=== PATIENT | female | born 1995 | race Caucasian/White ===

== ENCOUNTER → 2017-04-04 | Outpatient (CLI) | payer OTHER ==
[~2017-04-04] MED LIST: BCPILLS PO
[2017-04-09 09:57] LABS: CHLAMYDIA TRACH RNA*** NOT DETECTED (NOT DETECTED); GC (NEIS GONORRHOEAE)RNA** NOT DETECTED (NOT DETECTED)
== END | disposition home or self-care (01) ==
LOC: C.LABSPEC 14:55
PROVIDERS: ATTEND Obstetrics & Gynecology
DX: Z11.3 Encounter for screening for infections with a predominantly sexual mode of transmission (principal); Y04.8XXA Assault by other bodily force, initial encounter

== ENCOUNTER → 2017-04-04 | Outpatient (CLI) | payer OTHER ==
[2017-04-09 08:34] LABS: HEPATITIS C RNA TMA QUAL Detected
== END | disposition home or self-care (01) ==
LOC: C.LAB1850 10:40
PROVIDERS: ATTEND Obstetrics & Gynecology
DX: Z11.3 Encounter for screening for infections with a predominantly sexual mode of transmission (principal); Y04.8XXA Assault by other bodily force, initial encounter

== ENCOUNTER → 2017-08-16 | Day surgery (SDC) | payer OTHER ==
[2017-08-13 08:15] VITALS: BMI 56.0
[~2017-08-16] VITALS: Ht 152.4 cm; Wt 130.4 kg
[~2017-08-16] MED LIST changes: +FENTANYL CITRATE INJ 50 MCG/1 ML 2 ML VIAL ONE; +KETAMINE HCL INJ 50 MG/ML 10 ML VIAL ONE; +LIDOCAINE HCL 2% 2 ML VIAL (20MG/ML) ONE; +MIDAZOLAM HCL 1 MG/ML 2ML VIAL ONE; +PROPOFOL IV EMULSION 10 MG/ML 20 ML VIAL IV ONE; +SODIUM CHLORIDE 0.9% 500ML 500 ML IV ONE
[2017-08-16 10:37] VITALS: Ht 152.4 cm; Wt 130.4 kg
[2017-08-16 10:49] VITALS: TEMP 36.7
--- NOTE | 2017-08-16 11:07 | Endo History and Physical ---
History & Physical Date of Service: Aug 16, 2017. Chief Complaint: HEP C CHECK FOR VARICIES Referring Physician: DR GABRIEL History of Present Illness cirrhosis r/o varices Past Surgical History Hx Cardiac Surgery: No Hx Internal Defibrillator: No Hx Pacemaker: No Hx Abdominal Surgery: No Hx of Implantable Prosthesis: No Hx Cancer Surgery: No Hx Thoracic Surgery: No Hx Orthopedic: No Hx Urinary Tract Surgery: No Family History None Social History Smoking Status: Never Smoker Hx Substance Use: No Hx Alcohol Use: No Allergies Coded Allergies: No Known Allergies (Unverified , NONE, 08/16/17) Current Medications Reported Home Medications Medications Dose Route/Sig Max Daily Dose Days Date Category Control Pills (Miscellaneous) Tab 1 Tab PO QAM 08/13/17 Reported Vital Signs Weight (Kilograms): 130.45 Height (Feet): 5 Height (Inches): 0 Date Time Temp Pulse Resp B/P (MAP) Pulse Ox O2 Delivery O2 Flow Rate FiO2 08/16/17 10:49 36.7 20 137/89 (105) 99 Room Air Physical Exam General Appearance: WD/WN, no apparent distress Assessment and Plan EGD today
--- NOTE | 2017-08-16 11:21 | Discharge Instructions ---
Endoscopy Patient Instructions Date / Procedure(s) Performed Aug 16, 2017. EGD Allergy Information Coded Allergies: No Known Allergies (Unverified , NONE, 08/16/17) Discharge Date / Findings Aug 16, 2017. mild portal hypertensive gastropathy; no esophageal varices Medication Instructions Restart Stopped Medication(s): OK to resume all home medications Provider Instructions Activity Restrictions - No exercising or heavy lifting for 24 hours. - Do not drink alcohol the day of the procedure. - Do not drive a car or operate machinery until the day after the procedure. - Do not make any important decisions or sign important papers in 24 hours after the procedure. Following Day: - Return to full activity which may include returning to work/school. Diet Start your diet with liquids and light foods (jello, soup, juice, toast). Then eat your usual diet if not nauseated. Treatment For Common After Affects For mild abdominal pain, bloating, or excessive gas: - Rest - Eat lightly - Lie on right side Follow-Up Information Follow-up with DR GABRIEL as scheduled Anesthesia Information What You Should Know You have had a procedure that required some medicine to reduce anxiety and discomfort. This treatment is called moderate sedation. After receiving the treatment, you may be sleepy, but you will be able to breathe on your own. The effects of the treatment may last for several hours. Follow these instructions along with Activity/Diet recommendations noted above: * Do NOT do anything where dizziness or clumsiness would be dangerous. * Rest quietly at home today, then you can be up and about tomorrow. * Have a responsible person stay with you the rest of today. * You may have had an I.V. today. If so, you may take the dressing off later today. Recommendations Call your doctor if: * Trouble breathing * Continuous vomiting for more than 24 hours * Temperature above 101 degrees * Severe abdominal pain or bloating * Pain not relieved by pain medicine ordered * There is increased drainage or redness from any incision * A large amount of rectal bleeding greater than 2-3 tablespoons. (If you had a polyp/s removed or have hemorrhoids, a small amount of blood - from the rectum is to be expected.) * You have any unanswered questions or concerns. IN THE EVENT OF A SERIOUS EMERGENCY, GO TO THE NEAREST EMERGENCY ROOM Your discharge instructions were prepared by provider Tammy Hicks. Patient Instructions Signature Page Tori Lesser Patient (or Guardian) Signature/Date: I have read and understand the instructions given to me by my caregivers. Caregiver/RN/Doctor Signature/Date: The above-named patient and/or guardian has received patient instructions on this date. + Original Patient Signature Page (only) stays with chart. Please make copy for patient.
--- NOTE | 2017-08-16 11:29 | GI REPORT ---
Procedure Date: 08/16/2017 11:00 AM Procedure: Upper GI endoscopy Indications: Cirrhosis rule out esophageal varices Medicines: Propofol per Anesthesia Complications: No immediate complications. Estimated blood loss: None. Estimated Blood Loss: Estimated blood loss: none. Procedure: Pre-Anesthesia Assessment: - Prior to the procedure, a History and Physical was performed, and patient medications, allergies and sensitivities were reviewed. The patient's tolerance of previous anesthesia was reviewed. - The risks and benefits of the procedure and the sedation options and risks were discussed with the patient. All questions were answered and informed consent was obtained. - Patient identification and proposed procedure were verified prior to the procedure by the physician and the nurse. The procedure was verified in the pre-procedure area in the procedure room. - Mental Status Examination: alert and oriented. Airway Examination: normal oropharyngeal airway and neck mobility. Respiratory Examination: clear to auscultation. CV Examination: normal. Abdominal Examination: bowel sounds present, abdomen soft and non-tender, no masses or organomegaly noted. - ASA Grade Assessment: III - A patient with severe systemic disease. After obtaining informed consent, the endoscope was passed under direct vision. Throughout the procedure, the patient's blood pressure, pulse, and oxygen saturations were monitored continuously. The scope was introduced through the mouth, and advanced to the third part of duodenum. The upper GI endoscopy was accomplished without difficulty. The patient tolerated the procedure well. Findings: The esophagus was normal. Mild portal hypertensive gastropathy was found in the entire examined stomach. The examined duodenum was normal. Impression: - Normal esophagus. No varices - Mild changes of portal hypertensive gastropathy. - Normal examined duodenum. - No specimens collected. Recommendation: - Return to referring physician as previously scheduled. - Discharge patient to home. Tammy Hicks D.O. Tammy Hicks DO 08/16/2017 11:29:38 AM This report has been signed electronically. Note Initiated On: 08/16/2017 11:00 AM I attest to the content of the Intraoperative Record and orders documented therein, exceptions below
[2017-08-16 11:55] VITALS: BP 126/83; PULSE 97; O2SAT 97
--- NOTE | 2017-08-16 12:23 | Anesthesiology Progress Note ---
Anesthesia Post Op Note Date & Time Aug 16, 2017 at 12:23 Vital Signs Pain Intensity: 0 Vital Signs Past 12 Hours Date Time Temp Pulse Resp B/P (MAP) Pulse Ox O2 Delivery O2 Flow Rate FiO2 08/16/17 11:55 97 20 126/83 (97) 97 Room Air 08/16/17 11:40 96 16 161/100 (120) 97 Room Air 08/16/17 11:25 94 12 148/106 (120) 95 Room Air 08/16/17 10:49 36.7 20 137/89 (105) 99 Room Air Notes Mental Status: alert / awake / arousable, participated in evaluation Pt Amnestic to Procedure: Yes Nausea / Vomiting: adequately controlled Pain: adequately controlled Airway Patency, RR, SpO2: stable & adequate BP & HR: stable & adequate Hydration State: stable & adequate Anesthetic Complications: no major complications apparent
== END | disposition home or self-care (01) ==
LOC: C.GI 10:24
PROVIDERS: ATTEND Internal Medicine
DX: K74.60 Unspecified cirrhosis of liver (principal); K76.6 Portal hypertension; K31.89 Other diseases of stomach and duodenum; B19.20 Unspecified viral hepatitis C without hepatic coma

== ENCOUNTER 2017-12-09 15:14 | Emergency (ER) | payer OTHER ==
[~2017-12-09] VITALS: Ht 152.4 cm; Wt 133.0 kg
[~2017-12-09 15:14] MED LIST changes: -FENTANYL CITRATE INJ 50 MCG/1 ML 2 ML VIAL ONE; -KETAMINE HCL INJ 50 MG/ML 10 ML VIAL ONE; -LIDOCAINE HCL 2% 2 ML VIAL (20MG/ML) ONE; -MIDAZOLAM HCL 1 MG/ML 2ML VIAL ONE; -PROPOFOL IV EMULSION 10 MG/ML 20 ML VIAL IV ONE; -SODIUM CHLORIDE 0.9% 500ML 500 ML IV ONE
[2017-12-09 15:46] VITALS: TEMP 36.9; Ht 152.4 cm; Wt 133.0 kg
[2017-12-09 18:02] LABS: BASO % 0.4 %; BASO ABS # 0.03 K/uL (0-0.2); EOS % 1.4 %; EOS ABS # 0.11 K/uL (0-0.5); HEMATOCRIT 46.1 % (37-47); HEMOGLOBIN 15.4 g/dL (12.0-16.0); IG# 0.03 K/uL (0.00-0.02); LYMPH % 42.7 %; LYMPH ABS # 3.38 K/uL (1.2-3.4); MEAN CELL VOLUME 88.8 fL (80-100); MEAN CORPUSCULAR HEMOGLOBIN 29.7 pg (25-34); MEAN CORPUSCULAR HGB CONC 33.4 g/dl (32-36); MEAN PLATELET VOLUME 9.3 fL (7.4-10.4); MONO % 7.1 %; MONO ABS # 0.56 K/uL (0.11-0.59); PLATELET COUNT 199 K/uL (130-400); RED CELL DISTRIBUTION WIDTH CV 13.3 % (11.5-14.5); RED CELL DISTRIBUTION WIDTH SD 43.8 fL (36.4-46.3); WHITE BLOOD COUNT 7.91 K/uL (4.8-10.8)
--- NOTE | 2017-12-09 18:07 | DIAGNOSTIC IMAGING REPORT ---
CHEST ONE VIEW PORTABLE CLINICAL HISTORY: cough COMPARISON STUDY: No previous studies for comparison. FINDINGS: The study is somewhat limited from a technical standpoint. The heart is mildly enlarged. There is no focal pulmonary consolidation. There is equivocal right lower lobe bronchial wall thickening. No pleural effusions are visualized.[ IMPRESSION: 1. Equivocal right lower lobe bronchial wall thickening 2. No evidence of focal pulmonary consolidation Electronically signed by: Alberto Kahn M.D. 12/09/2017 6:06 PM Dictated Date/Time: 12/09/2017 6:05 PM
[2017-12-09 18:18] LABS: CALCIUM 8.9 mg/dl (8.5-10.1); CREATININE 0.7 mg/dl (0.60-1.20); POTASSIUM 4.1 mmol/L (3.5-5.1)
[2017-12-09] MEDS ORDERED: LEDI1TAB (18:28)
[2017-12-09] MEDS ORDERED: LEVO-13 (18:28)
[2017-12-09] MEDS ORDERED: DOXYCYCLINE HYCLATE 100 MG CAP PO ONE (19:30)
[2017-12-09] MEDS ORDERED: DOXY100C PO (19:31)
[2017-12-09 20:19] VITALS: BP 111/86; PULSE 84; O2SAT 95
--- NOTE | 2017-12-09 22:18 | EMERGENCY ROOM VISIT NOTE ---
History Report prepared by Nae: Madelin Correa Under the Supervision of: Dr. Deion Alexandra D.O. First contact with patient: 17:34 Chief Complaint: INFECTION Stated Complaint: SEVERE INFECTION IN RT LEG, FALL History of Present Illness The patient is a 22 year old female who presents to the Emergency Room with complaints of persistent right leg infection starting 1 week ago. The patient fell and hit her leg around 1 week ago. Her mother noticed the scab yesterday and saw that it was red. She is concerned for infection. She has not been taking anything for her leg. She has been able to walk. She has had cold symptoms with cough and rhinorrhea for 1 week. She denies any fever, abdominal pain, nausea, vomiting, diarrhea, or urinary symptoms. Source of History: patient, parent Onset: 1 week ago Position: leg (right) Quality: other (infection) Timing: other (persistent) Associated Symptoms: + cough, No fevers, No nausea, No vomiting, No abdominal pain, No diarrhea, No urinary symptoms Review of Systems See HPI for pertinent positives & negatives. A total of 10 systems reviewed and were otherwise negative. Past Medical & Surgical Medical Problems: (1) Hepatitis C Family History No pertinent family history stated. Social History Smoking Status: Never Smoker Housing Status: lives with family Current/Historical Medications Scheduled Doxycycline Hyclate (Vibramycin), 100 MG PO BID Miscellaneous Medications Ledipasvir-Sofosbuvir (Harvoni 90-400 mg) Levonorgestrel-Ethinyl Estradi (Camrese) Allergies Coded Allergies: No Known Allergies (Unverified , NONE, 12/09/17) Physical Exam Vital Signs Date Time Temp Pulse Resp B/P (MAP) Pulse Ox O2 Delivery O2 Flow Rate FiO2 12/09/17 20:19 84 18 111/86 95 Room Air 12/09/17 19:13 75 20 110/89 97 Room Air 12/09/17 17:38 67 22 150/106 97 Room Air 12/09/17 15:46 36.9 81 18 172/107 97 Room Air Physical Exam GENERAL: Sitting up in bed, alert, well appearing, well nourished, no distress, non-toxic EYE EXAM: normal conjunctiva. EARS: TMs clear bilaterally OROPHARYNX: no exudate, no erythema, lips, buccal mucosa, and tongue normal and mucous membranes are moist NECK: supple, no nuchal rigidity, no adenopathy, non-tender LUNGS: Clear to auscultation. Normal chest wall mechanics HEART: no murmurs, S1 normal and S2 normal ABDOMEN: abdomen soft, non-tender, normo-active bowel sounds, no masses, no rebound or guarding. BACK: Back is symmetrical on inspection and there is no deformity, no midline tenderness, no CVA tenderness. SKIN: no rashes and no bruising UPPER EXTREMITIES: upper extremities are grossly normal. LOWER EXTREMITIES: 3cm of erythema surrounding 5cm x 6cm scab on right anterior mid diggs. No induration or purulent discharge. Full active and passive ROM of the right ankle, knee, and hip. No pitting edema. NEURO EXAM: Normal sensorium, cranial nerves II-XII grossly intact, normal speech, no gross weakness of arms, no gross weakness of legs. Medical Decision & Procedures ER Provider Diagnostic Interpretation: Xray results as stated below per my and the radiologist's interpretation: CHEST ONE VIEW PORTABLE CLINICAL HISTORY: cough COMPARISON STUDY: No previous studies for comparison. FINDINGS: The study is somewhat limited from a technical standpoint. The heart is mildly enlarged. There is no focal pulmonary consolidation. There is equivocal right lower lobe bronchial wall thickening. No pleural effusions are visualized.[ IMPRESSION: 1. Equivocal right lower lobe bronchial wall thickening 2. No evidence of focal pulmonary consolidation Electronically signed by: Alberto Kahn M.D. 12/09/2017 6:06 PM Dictated Date/Time: 12/09/2017 6:05 PM Laboratory Results 12/09/17 17:50 Red Blood Count 5.19, Mean Corpuscular Volume 88.8, Mean Corpuscular Hemoglobin 29.7, Mean Corpuscular Hemoglobin Concent 33.4, Mean Platelet Volume 9.3, Neutrophils (%) (Auto) 48.0, Lymphocytes (%) (Auto) 42.7, Monocytes (%) (Auto) 7.1, Eosinophils (%) (Auto) 1.4, Basophils (%) (Auto) 0.4, Neutrophils # (Auto) 3.80, Lymphocytes # (Auto) 3.38, Monocytes # (Auto) 0.56, Eosinophils # (Auto) 0.11, Basophils # (Auto) 0.03 12/09/17 17:50 Test 12/09/17 17:50 White Blood Count 7.91 K/uL (4.8-10.8) Red Blood Count 5.19 M/uL (4.2-5.4) Hemoglobin 15.4 g/dL (12.0-16.0) Hematocrit 46.1 % (37-47) Mean Corpuscular Volume 88.8 fL (80-100) Mean Corpuscular Hemoglobin 29.7 pg (25-34) Mean Corpuscular Hemoglobin Concent 33.4 g/dl (32-36) Platelet Count 199 K/uL (130-400) Mean Platelet Volume 9.3 fL (7.4-10.4) Neutrophils (%) (Auto) 48.0 % Lymphocytes (%) (Auto) 42.7 % Monocytes (%) (Auto) 7.1 % Eosinophils (%) (Auto) 1.4 % Basophils (%) (Auto) 0.4 % Neutrophils # (Auto) 3.80 K/uL (1.4-6.5) Lymphocytes # (Auto) 3.38 K/uL (1.2-3.4) Monocytes # (Auto) 0.56 K/uL (0.11-0.59) Eosinophils # (Auto) 0.11 K/uL (0-0.5) Basophils # (Auto) 0.03 K/uL (0-0.2) RDW Standard Deviation 43.8 fL (36.4-46.3) RDW Coefficient of Variation 13.3 % (11.5-14.5) Immature Granulocyte % (Auto) 0.4 % Immature Granulocyte # (Auto) 0.03 K/uL (0.00-0.02) Anion Gap 8.0 mmol/L (3-11) Est Creatinine Clear Calc Drug Dose 158.8 ml/min Estimated GFR () 141.5 Estimated GFR (Non- 122.1 BUN/Creatinine Ratio 19.5 (10-20) Calcium Level 8.9 mg/dl (8.5-10.1) Laboratory results per my review. Medications Administered Medications (Trade) Dose Ordered Sig/Gil Route Start Time Stop Time Status Last Admin Dose Admin Doxycycline Hyclate (Vibramycin Cap) 100 mg ONE ONCE PO 12/09/17 19:30 12/09/17 19:32 DC 12/09/17 20:19 100 MG ED Course ED COURSE: Vital signs were reviewed and showed hypertension. The patients medical record was reviewed The above diagnostic studies were performed and reviewed. ED treatments and interventions as stated above. 173: The patient was evaluated in room A12A. A complete history and physical examination was performed. 192: Upon reevaluation, the patient is resting comfortably. I discussed my findings with the patient and her mother and they understand and agree with the treatment plan. Based on the patients age, coexisting illnesses, exam and lab findings the decision to treat as an outpatient was made. The patient remained stable while under my care. The patient appeared well at the time of discharge. 1930: Doxycycline Hyclate 100 mg PO. Medical Decision Differential diagnosis: Etiologies such as cellulitis, abscess, MRSA infection, DVT, necrotizing fasciitis, dermatitis, drug eruption, as well as others were entertained.. Patient is a 22-year-old female who presents to ER for a cough and runny nose that has been present since last week associated with an abrasion to her right diggs. Mom just noticed the abrasion today. Patient notes that she fell. She does have surrounding erythema. No recorded fevers. No induration. Based on her presentation she has mild surrounding cellulitis. Chest x-ray and blood work was obtained the upper respiratory infection and was unremarkable. A she family were updated bedside. She was discharged on doxycycline and instructed to follow-up with PCP in 48 hours for repeat check of her wound. Discussed with parent concerning signs and symptoms to watch out for. Parent was instructed to follow up with their PCP and discussed with the parent their option to return to the ED at anytime for persistent or worsening symptoms. The appropriate anticipatory guidance and out-patient management, including indications for return to the emergency department, were explained at length to the parent and understood. Medication Reconcilliation Current Medication List: was personally reviewed by me Blood Pressure Screening Patient's blood pressure: Elevated blood pressure Blood pressure disposition: Elevated BP felt to be situational Impression Primary Impression: Cellulitis Scribe Attestation The scribe's documentation has been prepared under my direction and personally reviewed by me in its entirety. I confirm that the note above accurately reflects all work, treatment, procedures, and medical decision making performed by me. Departure Information Dispostion Home / Self-Care Prescriptions Doxycycline Hyclate (VIBRAMYCIN) 100 Mg Cap 100 MG PO BID for 10 Days, CAP Prov: Deion Alexandra, DO 12/09/17 Referrals Onofre Vance M.D. Forms HOME CARE DOCUMENTATION FORM, IMPORTANT VISIT INFORMATION, WORK / SCHOOL INSTRUCTIONS Patient Instructions Cellulitis - [facility], [facility] Additional Instructions Please follow up with your primary care doctor with in the next 48 hours. Any worsening of your symptoms, please return to the ED immediately. This includes any fevers greater than 100.4, worsening pain, chest pain, shortness breath, persistent nausea, vomiting, unable to eat or drink, or any other concerning signs or symptoms from your standpoint. Please take antibiotics as prescribed and follow up with your PCP in 48 hours to have a recheck of her wound. This should be improving at that time point. Any streaking of the redness up her leg, increased swelling, fevers greater than 100.4 patient return to the ER for further evaluation. Problem Qualifiers Primary Impression: Cellulitis Site of cellulitis: unspecified site Qualified Codes: L03.90 - Cellulitis, unspecified
== END 2017-12-09 20:21 | disposition home or self-care (01) ==
LOC: C.EDB 15:15 → C.EDA 20:21
DX: L03.115 Cellulitis of right lower limb (principal); B19.20 Unspecified viral hepatitis C without hepatic coma

== ENCOUNTER 2017-12-12 17:59 | Emergency (ER) | payer OTHER ==
[~2017-12-12] VITALS: Ht 152.4 cm; Wt 129.9 kg
[~2017-12-12 17:59] MED LIST changes: -BCPILLS PO; +DOXY100C PO; +LEDI1TAB; +LEVO-13
[2017-12-12 18:02] VITALS: TEMP 36.3; Ht 152.4 cm; Wt 129.9 kg
[2017-12-12] MEDS ORDERED: CEPHALEXIN 500MG HOME PACK 1 EA BTL PO STA (20:20)
[2017-12-12] MEDS ORDERED: SEPTRA DS HOME PACK 1 EA VIAL PO STA (20:20)
--- NOTE | 2017-12-12 20:30 | EMERGENCY ROOM VISIT NOTE ---
ED Visit Note First contact with patient: 20:05 CHIEF COMPLAINT: Infection of the right lower extremity HISTORY OF PRESENT ILLNESS: This 22-year-old female patient presents to the emergency department, ambulatory, with her mother, complaining of worsening redness and swelling of the right lower extremity. The area has become increasingly red and warm. The area is not painful. The patient did fall and hit her leg approximately 1.5 weeks ago. Her mother noticed the scab earlier this week. The patient denies fever, chills, nausea, or loss of appetite. Movement of the right lower extremity is not decreased because of the pain. The patient's tetanus shot is up to date. The patient was here 2 days ago, and was prescribed doxycycline for the cellulitis. She has been taking this medication as prescribed. REVIEW OF SYSTEMS: A 10 system review of systems was performed with positives and pertinent negatives listed in the history of present illness. All other systems were reviewed and are negative. ALLERGIES: None MEDICATIONS: Camrese PMH: Prader-Willi SOCIAL HISTORY: The patient lives locally with family. She denies drug, alcohol , tobacco use. PHYSICAL EXAM: Vital Signs: Reviewed Nurse's notes, Temperature 36.3C, vital signs stable. GENERAL: This is a 22-year-old obese white female, in no acute distress, is non toxic in appearance, well-developed, well-nourished. SKIN: The anterior right diggs is red, warm, and swollen, surrounding a large scabbed over lesion. The zone of erythema is approximately 14cm x 9cm. There is no tenderness to palpation. There is no lymphangitic streaking. There is no discharge. There is no fluctuance. There is no induration. HEART: Regular rate and rhythm without murmur, gallop, or rub. LUNGS: Clear to auscultation bilaterally without wheezes, rales, or rhonchi. NEURO: Alert and oriented to person, place, and time. Normal sensation to light and sharp touch. Capillary reflex less than 2 seconds. Peripheral pulses 2 + bilaterally. RADIOLOGY: RIGHT LOWER EXTREMITY ULTRASOUND FINDINGS: Targeted sonography overlying the right anterior lower leg was performed. No fluid collection was identified to suggest abscess. No mass or other sonographic abnormality was identified. IMPRESSION: No right lower extremity abscess by sonography. EMERGENCY DEPARTMENT COURSE: Previous medical records reviewed. I examined the patient. She was also examined by Dr. Alexandra, who agrees that the cellulitis does seem to have spread. Ultrasound was ordered and performed to rule out abscess. This was negative for obvious abscess. The cellulitis was outlined with skin marker to provide a guideline for monitoring of the infection. The patient will be switched from doxycycline to Keflex and Bactrim. She was given a home pack of both of these medications to take tonight and tomorrow. Prescriptions were sent to the pharmacy. Discharge instructions reviewed, and the patient was discharged home in good condition. I attest that I have personally reviewed the patient's current medication list. Blood Pressure Screening: Patient was found to have a slightly elevated blood pressure due to circumstances. I do not believe that the patient requires hypertension monitoring. DIFFERENTIAL DIAGNOSIS: Cellulitis, abscess, trauma, DVT, malignancy, and others DIAGNOSIS: Cellulitis of the right anterior diggs Problem List Medical Problems: (1) Hepatitis C Status: Chronic Current/Historical Medications Scheduled Cephalexin Monohydrate (Keflex), 500 MG PO QID Doxycycline Hyclate (Vibramycin), 100 MG PO BID Sulfa/Trimethoprim (Bactrim Ds 800MG/160MG), 1 TAB PO BID Miscellaneous Medications Ledipasvir-Sofosbuvir (Harvoni 90-400 mg) Levonorgestrel-Ethinyl Estradi (Camrese) Allergies Coded Allergies: No Known Allergies (Unverified , NONE, 12/09/17) Vital Signs Date Time Temp Pulse Resp B/P (MAP) Pulse Ox O2 Delivery O2 Flow Rate FiO2 12/12/17 21:41 72 18 140/82 97 12/12/17 20:50 71 18 143/84 97 Room Air 12/12/17 18:02 36.3 81 18 160/109 97 Room Air Departure Information Impression Primary Impression: Cellulitis Dispostion Home / Self-Care Condition GOOD Prescriptions Sulfa/Trimethoprim (Bactrim Ds 800MG/160MG) Tab 1 TAB PO BID for 10 Days, #20 TAB Prov: Shania Cain PA-C 12/12/17 Cephalexin Monohydrate (Keflex) 500 Mg Cap 500 MG PO QID for 10 Days, #40 CAP Prov: Shania Cain PA-C 12/12/17 Referrals No Doctor, Assigned (PCP) Patient Instructions ED Infec Skin Cellulitis, [facility] Additional Instructions You were seen in the emergency department today for worsening cellulitis of the right lower extremity. Ultrasound did not reveal any evidence of abscess. Discontinue doxycycline. Cephalexin(Keflex) 500mg: Take one pill four times daily for 10 days for your skin infection. All antibiotics can cause diarrhea. If this occurs and you feel worse or it does not resolve in 1-2 days follow up with your doctor or return to the Emergency Department as this could be signs of serious underlying problems. Any medication can cause an allergic reaction, stop the pills immediately and return to the ER for rash, hives, breathing difficulties, or swelling. Trimethoprim-Sulfamethoxazole(Bactrim DS): Take one pill twice daily for 10 days for your skin infection. All antibiotics can cause diarrhea. If this occurs and you feel worse or it does not resolve in 1-2 days follow up with your doctor or return to the Emergency Department as this could be signs of serious underlying problems. Any medication can cause an allergic reaction, stop the pills immediately and return to the ER for rash, hives, breathing difficulties, or swelling. Follow-up with the PCP in 2-3 days for re-evaluation of the wound. You may return to the ED for re-check if you prefer. Return to the ED for worsening redness, swelling, pus-like drainage, fever, chills, nausea, vomiting, or other systemic symptoms. Problem Qualifiers Primary Impression: Cellulitis Site of cellulitis: extremity Site of cellulitis of extremity: lower extremity Laterality: right Qualified Codes: L03.115 - Cellulitis of right lower limb
--- NOTE | 2017-12-12 20:56 | DIAGNOSTIC IMAGING REPORT ---
RIGHT LOWER EXTREMITY ULTRASOUND CLINICAL HISTORY: Right lower extremity cellulitis. Evaluate for abscess. COMPARISON STUDY: No previous studies for comparison. FINDINGS: Targeted sonography overlying the right anterior lower leg was performed. No fluid collection was identified to suggest abscess. No mass or other sonographic abnormality was identified. IMPRESSION: No right lower extremity abscess by sonography. Electronically signed by: Gurmeet Owen M.D. 12/12/2017 8:55 PM Dictated Date/Time: 12/12/2017 8:54 PM
[2017-12-12] MEDS ORDERED: CEPH500C PO (21:28)
[2017-12-12] MEDS ORDERED: SULF800T23 PO (21:28)
[2017-12-12 21:41] VITALS: BP 140/82; PULSE 72; O2SAT 97
== END 2017-12-12 21:35 | disposition home or self-care (01) ==
LOC: C.EDB 17:59 → C.EDC 21:35
DX: L03.115 Cellulitis of right lower limb (principal); Q87.1 Congenital malformation syndromes predominantly associated with short stature; B19.20 Unspecified viral hepatitis C without hepatic coma

== ENCOUNTER 2022-01-29 05:31 | Observation (INO) ==
--- NOTE | 2022-01-24 13:57 | Anesthesiology Consultation ---
Date of Service January 24, 2022 Assessment & Plan (1) Encounter for pre-operative examination: Chart Review Chart Review: Acceptable Risk for Surgery (pending preop Covid testing results and DOS labs/EKG ) and Patient NOT seen in Pre Admission Testing -Due to DM- will order CBC with diff, PRP and EKG for stat AM of surgery - Check BSG AM DOS - Check test AM DOS Per nursing assessment 01/24/2022, patient resides at [facility]. Patient's mother will be present on DOS. Patient has not had any recent travel. No known Covid infection in the past 90 days. Patient is fully vaccinated for Covid. No known Covid positive exposures or Covid related symptoms. Preop Covid testing scheduled 01/26/22= will await results ERCP (done under [facility]) 12/27/21= Done under [facility]. No anesthesia issues noted per record History Surgery Operation Date: 01/29/22 07:15 Proposed Procedures p Laparoscopic Cholecystectomy possible Open - Neftaly Rose MD Height/Weight Height: 5 ft Weight: 86.908 kg Allergies Allergy/AdvReac Type Severity Reaction Status Date / Time No Known Drug Allergies Allergy Verified 01/24/22 12:53 Medications Home Medications Medication Instructions Recorded Confirmed Last Taken multivitamin (Daily Multiple) 1 tab PO QAM 04/11/20 01/24/22 Unknown ibuprofen 200 mg capsule 200 mg PO Q6H PRN 04/15/20 01/24/22 Unknown glipizide 2.5 mg tablet, extended 2.5 mg PO QAM 09/28/21 01/24/22 Unknown release 24 hr nystatin 100,000 unit/gram topical 1 applic TOPICAL DAILY PRN 09/28/21 01/24/22 Unknown powder ([facility]) levonorgestrel 0.15 mg-ethinyl 1 tab PO QAM 01/24/22 01/24/22 Unknown estradiol 30 mcg tablets,3 mos pack(91) ([facility]) Past Medical History Medical History (Updated 01/24/22 @ 14:11 by Melanie Mendoza PA-C) Cirrhosis Curvature of spine Developmental language disorder DM type 2 (diabetes mellitus, type 2) History of hepatitis C Intellectual disability Lives in fpc Obesity MARIA DEL CARMEN (obstructive sleep apnea) Pt refuses CPAP per records Prader-Willi syndrome Past Family History Family History Grandmother (Maternal) Breast cancer Mother Cancer Diabetes Heart disease Hypertension Father Hypertension Past Surgical History Surgical History History of biliary duct stent placement History of ERCP History of esophagogastroduodenoscopy (EGD) Social History Smoking Status: Never smoker Do You Dip or Chew Tobacco: No Hx Alcohol Use: Yes alcohol intake frequency: holidays/special occasions only Hx Substance Use: No substance use type: does not use Testing Echocardiogram Date: 09/08/21 EF: 61% LV Function: normal RWMA: + none Other Findings: no LVH or no diastolic dysfunction Valvular Disease: + no significant valvular disease Left atrium mildly enlarged. No evidence of ASD but resolution is normal assessment for PFO. No VSD.
[2022-01-29] MEDS ORDERED: LR 15ML/HR IV SCH ×2 (06:00)
[2022-01-29] MEDS ORDERED: ceFAZolin 2000MG 2,000 MG/15 ML SYR IV SCH (06:00)
[2022-01-29 06:12] LABS: Basophils # (auto) 0.07 K/uL (0-0.2); Basophils % (auto) 0.9 %; Eosinophils # (auto) 0.17 K/uL (0-0.5); Eosinophils % (auto) 2.1 %; Hematocrit (blood only) 44.8 % (37-47); Hemoglobin 15.2 g/dL (12.0-16.0); Immature Granulocytes # (auto) 0.02 K/uL (0.00-0.02); Immature Granulocytes % (auto) 0.2 %; Lymphocytes # (auto) 2.91 K/uL (1.2-3.4); Lymphocytes % (auto) 36.2 %; Mean Corpuscular Hemoglobin 30.1 pg (25-34); Mean Corpuscular Volume 88.7 fL (80-100); Mean Platelet Volume 9.8 fL (7.4-10.4); Monocytes # (auto) 0.67 K/uL (0.11-0.59); Monocytes % (auto) 8.3 %; Neutrophils # (auto) 4.19 K/uL (1.4-6.5); Neutrophils % (auto) 52.3 %; Platelet Count 235 K/uL (130-400); RDW Coefficient of Variation 13.5 % (11.5-14.5); Red Blood Count 5.05 M/uL (4.2-5.4); White Blood Count 8.03 K/uL (4.8-10.8)
[2022-01-29 06:14] LABS: Mean Corpuscular Hgb Conc 33.9 g/dL (32-36)
[2022-01-29 06:16] LABS: Pregnancy Test, Serum Negative (Negative)
[2022-01-29 06:20] LABS: BUN Creatinine Ratio 17.7 (10-20); Creatinine Clr Calc Pharmacy 133.5 ml/min; Est GFR (African American) 143.2 ml/min; Est GFR (Non-African American) 123.6 ml/min; Potassium 3.7 mmol/L (3.5-5.1)
[2022-01-29] MEDS ORDERED: ONDANSETRON INJ 2 MG/ML 2 ML VIAL ONE ×2 (06:52→09:51)
[2022-01-29] MEDS ORDERED: fentaNYL citrate 100 MCG/2 ML VIAL ONE ×3 (06:52→09:33)
[2022-01-29] MEDS ORDERED: LIDOCAINE 2% 2 ML VIAL/AMP(20MG/ML) INFIL ONE (06:52)
[2022-01-29] MEDS ORDERED: ROCURONIUM BROMIDE 10 MG/ML 5 ML VIAL IV ONE ×5 (06:52→09:20)
[2022-01-29] MEDS ORDERED: PROPOFOL IV EMULSION 10 MG/ML 20 ML VIAL IV ONE (06:52)
[2022-01-29] MEDS ORDERED: MIDAZOLAM HCL 1 MG/ML 2ML VIAL ONE (06:52)
[2022-01-29] MEDS ORDERED: BUPIVACAINE/EPINEPHRINE 0.25% 1:200,000 30 ML VIAL ONE (07:01)
--- NOTE | 2022-01-29 07:09 | History & Physical Bridge Note ---
Date of Service January 29, 2022 History & Physical Bridge Note I have examined the patient, reviewed the History & Physical and in the interval since the performance of the History & Physical I have noted the following changes of clinical significance: no changes noted
[2022-01-29] MEDS ORDERED: ATROPINE SULFATE 0.1 MG/ML 10ML SYR IV PRN (07:10)
[2022-01-29] MEDS ORDERED: fentaNYL citrate 100 MCG/2 ML VIAL IV PRN (07:10)
[2022-01-29] MEDS ORDERED: ONDANSETRON INJ 2 MG/ML 2 ML VIAL IV PRN ×2 (07:10→11:24)
[2022-01-29] MEDS ORDERED: KETOROLAC 30 MG/ML VIAL IV PRN (07:10)
[2022-01-29] MEDS ORDERED: PROMETHAZINE HCL 6.25 MG in SODIUM CHLORIDE 0.9% 50 ML IV PRN (07:10)
[2022-01-29] MEDS ORDERED: SCOPOLAMINE 1 MG TDSY TD ONE ×2 (07:11)
--- NOTE | 2022-01-29 08:50 | Electrocardiogram Report ---
Test Reason : Blood Pressure : / mmHG Vent. Rate : 053 BPM Atrial Rate : 053 BPM P-R Int : 144 ms QRS Dur : 090 ms QT Int : 438 ms P-R-T Axes : 016 024 033 degrees QTc Int : 410 ms Sinus bradycardia Otherwise normal ECG No previous ECGs available Confirmed by Chester Lafleur ([id number]) on 01/29/2022 8:50:21 AM Referred By: Neftaly Rose Confirmed By:Dennys Lafleur
[2022-01-29] MEDS ORDERED: GLYCOPYRROLATE 0.2 MG/ML VIAL ONE (09:18)
[2022-01-29] MEDS ORDERED: NEOSTIGMINE METHYLSULFATE 1 MG/ML 10ML VIAL ONE (09:18)
[2022-01-29] MEDS ORDERED: SURGICEL ABSORB HEMOSTAT 2IN X 14IN TOP ONE ×3 (09:24→09:39)
[2022-01-29] MEDS ORDERED: ESMOLOL HCL INJ 10 MG/ML 10ML VIAL IV ONE (09:40)
--- NOTE | 2022-01-29 09:51 | Post Operative Brief Note ---
Immediate Post Op Note v1 Date of Surgery January 29, 2022 Pre & Post Diagnosis Operation Date: 01/29/22 07:15 Pre-Op Diagnosis: Symptomatic Cholelithiasis Post-Op Diagnosis: Symptomatic Cholelithiasis I identified the patient and participated in the time-out.: Yes Procedure Operation Date: 01/29/22 07:15 Actual Procedures p Laparoscopic Cholecystectomy(Not Applicable) - Neftaly Rose MD Surgeon Neftaly Rose MD Inside Sales Account Representative ROLA lopez assisted with tissue retraction, camera, closure Estimated Blood Loss 15 Findings Consistent with Post-Op Diagnosis Severe acute and chronic inflammation of the gallbladder, dissection of the triangle of Calot required an extra hour to visualize adequately the structures. This warrants a 22 modifier Anesthesia Type General Complications No immediate complications
--- NOTE | 2022-01-29 09:55 | Operative Report ---
Post Operative Report Pre & Post Diagnosis Operation Date: 01/29/22 07:15 Pre-Op Diagnosis: Symptomatic Cholelithiasis Post-Op Diagnosis: Symptomatic Cholelithiasis I identified the patient and participated in the time-out.: Yes Procedure Operation Date: 01/29/22 07:15 Actual Procedures p Laparoscopic Cholecystectomy(Not Applicable) - Neftaly Rose MD Surgeon Neftaly Rose MD Nitric Acid Concentrator Operator ROLA lopez assisted with tissue retraction, camera, closure Estimated Blood Loss 15 Findings Consistent with Post-Op Diagnosis Severe acute and chronic inflammation of the gallbladder, an additional hour was required for dissection of the triangle of Kim. This warrants a 22 modifier. Specimens Gallbladder Mesenteric nodule Anesthesia Type General Complications No immediate complications Description of Procedure The patient was taken to the operating room, and placed supine on the operating table. A timeout was performed, perioperative antibiotics were administered, SCD boots were placed. After adequate anesthesia and analgesia was obtained, the abdomen was prepped and draped in the normal sterile fashion. Local anesthetic was injected into and around the proposed incision sites. An incision was made with a 15 blade scalpel in the supraumbilical region and carried down to the level of the fascia. The fascia was grasped with a trach hook, and a varies needle was used to enter the abdominal cavity. The abdomen was insufflated to a pressure of 15 mmHg, and a 11 mm trocar was placed in this location. A 10 mm, 30 degree laparoscope was placed into the abdominal cavity, and the abdomen was surveyed. Two 5 mm trochars were placed along the right costal margin, and one 5 mm trocar was placed in the subxiphoid region under direct visualization. There is a severe inflammatory reaction in the right upper quadrant. The gallbladder was covered with adhesions to the omentum. These were taken down carefully with blunt dissection and judicious use of the electrocautery. A dark looking mesenteric nodule was identified, dissected free, and sent off the field for specimen. The gallbladder was grasped and retracted cephalad and laterally. Tedious dissection was required to visualize the cystic duct and cystic artery. An additional hour of dissection was required for this, warranting a 22 modifier for this case. Finally, the triangle was attained. Dissection began in the triangle with a combination of blunt dissection with the [place] dissector, and judicious use of the hook cautery. The cystic duct and cystic artery were dissected free circumferentially, and a critical view of safety was obtained. The cystic duct was incredibly distended. It required upgrading the subxiphoid port to a 12 scope and utilization of a Endo TAMERA stapler. The cystic artery was clamped and secured with surgical clips. The gallbladder was removed from the gallbladder fossa with the hook cautery. There was significant amount of bleeding from the liver bed. No bile or stones were . the camera was switched to the subxiphoid port, the gallbladder was placed in an Endo Catch bag, and removed via the supraumbilical port site. The camera was switched back, and the abdomen was surveyed again. Hemostasis was checked and attended. This required electrocautery to the liver bed as well as Surgicel placement. Final hemostasis was adequate. The abdomen was copiously irrigated and suctioned free. Again hemostasis was checked and was excellent. All trochars were removed under direct visualization. The abdomen was desufflated. The fascia in the 11 mm port site was closed with a 0 Vicryl suture. The skin was closed with a running 4-0 Monocryl subcuticular stitch. Dermabond was applied. The patient tolerated the procedure without complication, and was transferred in stable condition to the PACU. All instrument, needle, and sponge counts were correct at the end of the case. My surgical first assistant was necessary throughout the procedure for tissue retraction, possible camera operation, and closure of the wounds. I understand that section 1842(b)(7)(D) of the Social Security act generally prohibits Medicare physician fee schedule payment for the services of assistants at surgery in teaching hospitals when qualified residents are available to furnish such services. I certify that the services for which payment is claimed were medically necessary and that no qualified resident was available to perform the services. I further understand that these services are subject to postpayment review by the Medicare carrier. I attest to the content of the Intraoperative Record and any orders documented therein. Any exceptions are noted below.
[2022-01-29] MEDS ORDERED: MoRPHine SULFATE 2 MG/ML CARP IV PRN (11:24)
[2022-01-29] MEDS ORDERED: PROMETHAZINE HCL 25 MG in SODIUM CHLORIDE 0.9% 50 ML IV PRN (11:24)
[2022-01-29] MEDS ORDERED: GLUCAGON FOR INJ 1 MG VIAL SQ PRN (11:24)
[2022-01-29] MEDS ORDERED: CARBOHYDRATES FOR HYPOGLYCEMIA PO PRN (11:24)
[2022-01-29] MEDS ORDERED: DEXTROSE 50% 50 ML SYRINGE IV PRN (11:24)
[2022-01-29] MEDS ORDERED: diphenhydrAMINE Capsule 25 MG CAP PO PRN (11:24)
[2022-01-29] MEDS ORDERED: GLUCOSE 40% GEL 15 GM TUBE PO PRN (11:24)
[2022-01-29] MEDS ORDERED: GLUCOSE 10 TABS/TUBE PO PRN (11:24)
[2022-01-29] MEDS: oxyCODONE/ACETAMINOPHEN 5mg/325mg TAB PO PRN (11:37)
[2022-01-29] MEDS: LACTATED RINGER'S 1,000 ML IV SCH (11:40)
--- NOTE | 2022-01-29 11:53 | Anesthesiology Progress Note ---
Date of Service January 29, 2022 Anesthesia Post Procedure Vital Signs Vital Signs: Temp Pulse Pulse Resp BP BP Pulse Ox 01/29/22 11:41 36.3 C L 81 16 142/94 H 98 01/29/22 11:12 36.3 C L 79 134/94 100 01/29/22 11:05 77 18 123/89 99 01/29/22 10:55 36.4 C L 81 18 134/90 99 01/29/22 10:45 83 22 134/96 100 01/29/22 10:35 96 H 22 140/95 100 01/29/22 10:27 36.3 C L 113 H 20 133/94 99 01/29/22 06:05 55 L 18 133/90 100 Transfer of Care Handoff Completed per policy Notes Mental Status: alert / awake / arousable Patient Amnestic to Procedure: Yes Nausea / Vomiting: adequately controlled Pain: adequately controlled Airway Patency, RR, SpO2: stable & adequate BP & HR: stable & adequate Hydration State: stable & adequate Anesthetic Complications: no major complications apparent
[2022-01-29] MEDS: INSULIN ASPART PER UNIT SC SCH ×3 (13:02→21:07)
[2022-01-29] MEDS: CHECK SCOPOLAMINE PATCH PLACEMENT SCH (17:10)
[2022-01-30] MEDS: CHECK SCOPOLAMINE PATCH PLACEMENT SCH ×2 (00:03→07:36)
[2022-01-30] MEDS: LACTATED RINGER'S 1,000 ML IV SCH (05:33)
--- NOTE | 2022-01-30 06:58 | Discharge Summary ---
Date of Service January 30, 2022 Admission HPI Per Admitting Provider See history and physical Admission Exam Per Admitting Provider see history and physical Principal Diagnosis Acute and chronic cholecystitis Discharge Data Allergies Allergy/AdvReac Type Severity Reaction Status Date / Time No Known Drug Allergies Allergy Verified 01/29/22 05:59 Procedures Performed Operation Date: 01/29/22 07:15 Actual Procedures p Laparoscopic Cholecystectomy(Not Applicable) - Neftaly Rose MD Hospital Course (1) Chronic cholecystitis: 26-year-old woman admitted from home to the operating room for laparoscopic cholecystectomy. The details of this operation are dictated separate operative note. Postoperatively she was transferred in stable condition to the recovery room and subsequently to the floor. DVT prophylaxis with SCDs and Lovenox. Pulmonary toilet encouraged with early ambulation and incentive spirometry. Pain control with IV and p.o. pain medications. We advanced her diet as tolerated to regular. By the day of discharge, she was tolerating regular diet, not requiring any IV pain medications, she was discharged home in stable condition. She will return to clinic in 2 weeks. Total Time Total Time Spent Total Time Spent (In Minutes): 30 minutes Discharge Plan Discharge Items Patient Disposition: Home - Self-Care Reason For Visit: Symptomatic Cholelithiasis Discharge Diagnosis: Symptomatic Cholelithiasis Acute Cholecystitis Activity: Per Instructions section Non-emergency contact: Primary Care Provider and Surgeon Call non-emergency contact if: your pain is not controlled, your pain is worsening, your pain is concerning for you, you have a fever, your temperature is above 101.5, your wound has increased redness, your wound has increased drainage and your wound pain has increased Follow-up/Referrals: Na Wong, [Primary Care Provider] - Diet: Carb Consistent or DM2 Addtl Attending Provider Instructions: Post-Surgical ~Discharge Instructions Activity Recommendations: - lifting limitation: (20 pounds for 2-4 weeks), - exercise/sex/sports limit: (nonstrenuous for 2 weeks), - driving or machine use limit: (none for 1 week or until pain free and no longer taking narcotic pain medication, - Shower/bathe limit: (may shower beginning tomorrow) Diet: - Resume previous diet SPECIAL CARE INSTRUCTIONS: - May shower. Let water run over area and pat dry. No submerging incisions underwater for 2 weeks. - Surgical glue will fall off on its own. DO NOT pick at it. - Call the surgeon's office with any questions or concerns - - (ex. temperature higher than 101 degrees F, excessive bleeding or pain). MEDICATIONS: - Resume previous medications unless instructed otherwise by your surgeon. - Percocet 1 every 4 hours, as needed for pain FOLLOW UP VISIT: - If not already scheduled, please call the office to schedule a two week follow-up appointment. Office number Pending Studies at Discharge: Yes (Gallbladder pathology, will be reveiwed at postop visit) [facility]Alone [facility], Smoking Cessation Medications and DC Order Prescriptions: New oxycodone-acetaminophen [Percocet] 5-325 mg tablet 1 tab PO Q6H PRN (Reason: pain) Qty: 10 RF: 0 Continued glipizide 2.5 mg tablet extended release 24 hr 2.5 mg PO QAM RF: 0 nystatin [Nyamyc] 100,000 unit/gram powder 1 applic topical DAILY PRN (Reason: ud) RF: 0 multivitamin [Daily Multiple] Tablet 1 tab PO QAM RF: 0 ibuprofen 200 mg capsule 200 mg PO Q6H PRN (Reason: Pain) RF: 0 levonorgestrel-ethinyl estrad [Jolessa] 0.15 mg-30 mcg (91) tablets,dose pack,3 month 1 tab PO QAM RF: 0 Discharge Orders: Discharge Order (Routine); Ordered 01/30/22 Ordered By: Neftaly Rose Admission Data Admit Date/Time: 01/29/22 10:03 Attending Provider: Neftaly Rose Admit Provider: Neftaly Rose Primary Care Provider: Na Wong
[2022-01-30] MEDS: oxyCODONE/ACETAMINOPHEN 5mg/325mg TAB PO PRN (07:36)
[2022-01-30] MEDS: INSULIN ASPART PER UNIT SC SCH ×2 (09:02→12:46)
== END 2022-01-30 13:22 | disposition home or self-care (01) ==
LOC: ASU 05:31 → 3N 05:31